=== PATIENT | male | born 2000 | race Caucasian/White ===

== ENCOUNTER 2024-11-16 01:03 | Day surgery (SDC) | payer OTHER, SELFPAY ==
[2024-11-03 13:08] VITALS: BMI 29.1
--- NOTE | 2024-11-03 13:17 | SUR.PREOP ---
Report to the Outpatient Waiting Room, entrance under the green pavilion located off [facility], at time 11:30 a.m. on date 11/16/2024. Planned Procedure Time: 1:30p.m.? Time changes happen often and if your time is changed the preop area will call you the afternoon before. - You and your visitor will be asked to self-screen and do not enter if you have any COVID symptoms. Please call surgeon if you need to reschedule. - A mask is optional within the hospital at this time. Patients may have clear liquids (water, carbonated beverages, clear teas, apple juice) until 3 hours prior to surgery with a maximum of 20 ounces. - No food from midnight until time of surgery and no smoking, or chewing tobacco (or any form of nicotine). No chewing gum, candy or mints. Take only the following medications with a SIP of water on the morning of surgery: N/A DO NOT STOP ANY OF YOUR OTHER PRESCRIPTION MEDICATIONS PRIOR TO SURGERY EXCEPT THE FOLLOWING Hold all vitamins and supplements for 3 days per anesthesiologist. Medications to discontinue per physician N/A Date to take last dose N/A Please no make-up, nail arabic, hairspray, perfume, deodorant, or body powder the day of surgery.? No jewelry (including any body piercings) or valuables the day of surgery, leave them at home.? Please take a shower or bath the night before, or the morning of, surgery with an antibacterial soap.? Wear comfortable, loose fitting clothing.? Children are encouraged to wear pajamas. - Jewelry must be removed prior to entering the operating room.? Rings and piercings that are not removed may be cut off. - The hospital will not accept responsibility for valuables.? - Please leave all valuables, including medications, at home the day of surgery. If you are going home after surgery, a licensed delivery driver assistant must drive you home.? - NO public transportation without another adult if you receive anesthesia. - We recommend that an adult stay with you for 24 hours following discharge. - We also recommend that you do not drive, make important decision, drink alcoholic beverages, or take any drugs that were not prescribed by your health care provider for at least 24 hours after your discharge time. For Pediatric surgeries, we recommend two adults accompany the child home. Follow any additional instructions given to you from your surgeon. Telephone instructions given to Muriel Bose and asked if any additional questions and then verbalized understanding. Patient advised to call surgeon office or pre surgery nurse liaison [phone] if any additional questions.
[2024-11-16] VITALS (7 sets, daily range): BP systolic 102–130; BP diastolic 47–71; PULSE 64–86; RESP 14–18; TEMP 36.1–36.8; O2SAT 100
--- OUTSIDE RECORDS SUMMARY | 2024-11-16 01:07 | XMS_ITS | Encounter Summary ---
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
--- OUTSIDE RECORDS SUMMARY | 2024-11-16 01:07 | XMS_ITS | Clinical Summary ---
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 Gender Identity Not on file Sexual Orientation Not on file Last Filed Vital Signs Vital Sign Reading Time Taken Comments Blood Pressure 118/91 10/22/2020 11:28 AM CDT Pulse 64 10/22/2020 11:28 AM CDT Temperature 36.3 C (97.4 F) 10/22/2020 11:28 AM CDT Respiratory Rate 16 10/22/2020 11:28 AM CDT Oxygen Saturation 99% 10/22/2020 11:28 AM CDT Inhaled Oxygen Concentration - - Weight 77.1 kg (170 lb) 10/22/2020 11:28 AM CDT Height 162.6 cm (5' 4 ) 10/22/2020 11:28 AM CDT Body Mass Index 29.18 10/22/2020 11:28 AM CDT Plan of Treatment Health Maintenance Due Date Last Done Comments Annual Physical 2005 DTaP, Tdap and Td Vaccines (6 - Tdap) 2013 12/16/2007, 06/29/2003, 2002, Additional history exists HPV Vaccines (2 - Male 2-dose series) 08/01/2017 01/29/2017 Meningococcal B Vaccine (1 of 2 - Standard) 2018 Hepatitis C 2020 Hepatitis B Vaccines (1 of 3 - 19+ 3-dose series) 2021 COVID-19 Vaccine (1 - 2023-25 season) 2024 Meningococcal Vaccine Completed 01/26/2019 Pneumococcal Vaccine: Pediatrics (0 to 5 Years) and At-Risk Patients (6 to 49 Years) Aged Out No longer eligible based on patient's age to complete this topic RSV Immunizations Under 20 Months Aged Out No longer eligible based on patient's age to complete this topic Insurance [facility] Care Teams Professor Of Industrial Technology Relationship Specialty Start Date End Date Dharmesh Danielle MD [address] [place] [phone] PCP - General FAMILY PRACTICE 10/22/20
[2024-11-16] MEDS: LACTATED RINGERS 1,000 ML 30 ML IV CONT ×2 (12:40→15:01)
--- NOTE | 2024-11-16 12:54 | WPDHPUPDATE1 ---
History and Physical Update Update Date/Time: 11/16/24 12:54 History and Physical has been reviewed, including an updated exam of the patient. There are NO changes in the patient's condition. Risks, benefits, and alternatives have been discussed and questions answered. Patient agrees to proceed with procedure.
--- NOTE | 2024-11-16 12:55 | PM.IMHP ---
H&P: HPI History of Present Illness Date/Time: 11/16/24 12:55 Chief Complaint: Pilonidal cyst Narrative: This is a 24-year-old man who presents for excision of complicated pilonidal cyst. He was seen about 6 months ago but wanted to delay surgery until the end of school. He denies any significant changes since last seen in the office. Review of Systems Review of Systems: All systems reviewed & are unremarkable except as noted in HPI and below Constitutional: Constitutional: Denies chills, Denies fever(s), Denies headache(s) and Denies weight loss Eyes: Eyes: Denies change in vision ENT: Denies dizziness, Denies headache(s), Denies neck mass and Denies throat swelling Cardiovascular: Cardiovascular: Denies chest pain, Denies lightheadedness and Denies dyspnea Respiratory: Respiratory: Denies cough, Denies dyspnea and Denies wheezing Gastrointestinal: Gastrointestinal: Denies abdominal pain, Denies change in bowel habits, Denies nausea and Denies vomiting Genitourinary: Genitourinary: Denies hematuria and Denies dysuria Musculoskeletal: Musculoskeletal: Reports as per HPI Integumentary/Breasts: Skin/Breast: Reports as per HPI Neurologic: Denies dizziness and Denies headache(s) Allergic/Immunologic: Allergic/Immunologic: Denies throat swelling and Denies wheezing PMFSH Past Medical History Medical History No pertinent past medical history Surgical History Surgical History No history of previous surgery Family History Family History Father TIA (transient ischemic attack) Cerebrovascular accident Hypertension High cholesterol Mother High cholesterol Social History Social History (Updated 05/15/24 @ 10:44 by Bel Morrissey CMA) Smoking status: Never smoker Alcohol intake: current Drinks per week: 2 Substance use: never Substance use type: does not use Do You Feel Safe in your Home?: Yes Lack of Transportation: No Lack of Food: Never True Current Housing: I Have Housing Concerned About Future Housing: No Difficulty Paying Gas/Electric Bills: No Difficulty Paying for Meds: No Currently Unemployed: No Education: Bachelor's Degree Difficulty w/ Childcare or Family Care: No Living arrangements: with family Occupation/Education: student Meds Home Medications and Allergies Home Medications ?Medication ?Instructions ?Recorded ?Confirmed ?Type finasteride 5 mg tablet 2.5 mg PO DAILY 05/15/24 11/03/24 History mupirocin 2 % topical ointment 1 applic topical DAILY #22 grams 05/15/24 11/03/24 Rx Allergies Allergy/AdvReac Type Severity Reaction Status Date / Time No Known Allergies Allergy Verified 11/03/24 13:07 Exam Const: General: no acute distress and alert Orientation/consciousness: patient oriented x3 HENMT: Head: normocephalic and atraumatic Ears: hearing grossly normal bilaterally Face/Nose/Sinus: Normal nares present Mouth: Yes Normal oral and palatal mucosa present Eyes: Periorbital: periorbital findings normal Sclera: sclerae normal EOM: EOMs intact bilaterally Neck: Neck: normal visual inspection, no lymphadenopathy and trachea midline Chest: Chest palpation & inspection: normal inspection of the chest Resp: Effort & Inspection: normal respiratory effort Auscultation: clear to auscultation bilaterally Cardio: Jugular venous distension: no JVD Rate: regular rate Rhythm: regular rhythm Heart sounds: S1 normal heart sound present and S2 normal heart sound present Peripheral pulses: Peripheral pulses 2+ throughout GI: Inspection: normal to inspection GI Palp: Yes Soft to palpation, No Tenderness to palpation present (GI), No Guarding due to palpation present (GI) and No Rebound tenderness present Percussion: Yes normal to percussion Auscultation: normal bowel sounds : General: Yes no CVA tenderness Back/Spine/Pelvis: Back: no CVA tenderness Skin: Other: Pilonidal cyst just to the right of midline within the intergluteal cleft Neuro: General: patient oriented x3, no focal motor deficits and CN's II-XI intact bilaterally Cognition (Neuro): normal cognition Speech: normal speech Motor exam (neuro): 5/5 motor strength present throughout Extrem: General: capillary refill normal and no clubbing, cyanosis or edema Assessment and Plan Assessment and plan (1) Pilonidal cyst: Code(s): L05.91 - Pilonidal cyst without abscess Status: Acute Assessment and Plan: I have recommended Excision of complicated pilonidal cyst. I have discussed the procedure, risks, benefits, and alternatives with the patient. All questions answered. No changes since last seen in office.
--- NOTE | 2024-11-16 13:12 | P.PNAN_ITS ---
Anes - Initial Pre Proc Eval Procedure: Operation Date: 11/16/24 13:30 Proposed Procedures p Excision Complicated Pilonidal Cyst - Vicente Pool DO Date/Time: 11/16/24 13:12 Surgeon: Vicente Pool DO Pre Op Diagnosis: Piloindal Cyst Patient Data Age: 24 Gender: M Height: 1.63 m Weight: 77.3 kg Last Vital Signs Temp 98.3 F 11/16/24 12:02 Pulse 66 11/16/24 12:02 Resp 16 11/16/24 12:02 BP 121/47 L 11/16/24 12:02 Pulse Ox 100 11/16/24 12:02 O2 Del Method Room Air 11/16/24 12:02 Allergies Allergy/AdvReac Type Severity Reaction Status Date / Time No Known Allergies Allergy Verified 11/03/24 13:07 Home Medications ?Medication ?Instructions ?Recorded ?Confirmed ?Type finasteride 5 mg tablet 2.5 mg PO DAILY 05/15/24 11/03/24 History mupirocin 2 % topical ointment 1 applic topical DAILY #22 grams 05/15/24 11/03/24 Rx Patient hx anesthesia problems: none Family hx anesthesia problems: none Results Review: All pre-operative results and documents have been reviewed as part of the pre- operative evaluation. [facility] Past Medical History Medical History No pertinent past medical history Surgical History Surgical History No history of previous surgery Family History Family History Father TIA (transient ischemic attack) Cerebrovascular accident Hypertension High cholesterol Mother High cholesterol Social History Social History Smoking status: Never smoker Alcohol intake: current Drinks per week: 2 Substance use: never Substance use type: does not use Do You Feel Safe in your Home?: Yes Lack of Transportation: No Lack of Food: Never True Current Housing: I Have Housing Concerned About Future Housing: No Difficulty Paying Gas/Electric Bills: No Difficulty Paying for Meds: No Currently Unemployed: No Education: Bachelor's Degree Difficulty w/ Childcare or Family Care: No Living arrangements: with family Occupation/Education: student [employer] Final PreProcedure Day of Procedure 11/16/24 13:12 Patient weight: normal Lungs: normal air movement Airway: Mallampati scale class II Neurological: alert and oriented Last oral intake: >/= 8 hours ASA classification: I Emergent: no Anesthetic plan: proceed Anesthesia type and monitoring: general GIVS and standard monitoring Results Review: All pre-operative results and documents have been reviewed as part of the pre- operative evaluation. Healthy 24 yo male. Informed Consent: The patient's anesthetic plan and its attendant risks and benefits were discussed with the patient/family/POA. Questions were solicited and answers provided to the satisfaction of the patient/family/POA.
[2024-11-16] MEDS: ceFAZolin 2 GM/D5W 50 ML 2 GM/50 ML BAG IVPB (13:25)
[2024-11-16] MEDS: BUPIVACAINE/EPINEPHRINE 0.5% 50 ML VIAL 20 ML INFILTRATE (13:57)
[2024-11-16] MEDS: KETOROLAC 30 MG/ML VIAL (*BKC) IV PUSH (14:20)
--- NOTE | 2024-11-16 14:38 | P.OP_ITS ---
Procedure Note - Detailed Date of Procedure 11/16/24 Pre-op Diagnosis Piloindal Cyst Post-op Diagnosis Same Procedure Performed Excision of complicated pilonidal cyst Surgeon Vicente Pool, DO Anesthesia General and Local ( 0.5% bupivacaine with epinephrine) Indications This is a 24-year-old man who presented with recurrent drainage from pilonidal cyst. He has a chronic wound on the upper midline intergluteal cleft has some occasional bloody drainage. He had been trying local wound care without much r elief. Discussions were made with the patient about treatment options and decision was made to proceed with excision of complicated pilonidal cyst. Findings Excision of complicated pilonidal cyst was performed. Patient had multiple small sinus tracts the midline intergluteal cleft. Several of the sinus tracts were tracking cephalad towards an area on the superior cleft that had a chronic wound and mild swelling. The total distance between the tracts and the upper wound was about 10 cm. An elliptical incision was made to encompass the entire area. The pilonidal cyst was completely excised and sent to the lab for pathology. The wound was then closed in layers using 0 Vicryl interrupted deep sutures followed by Prolene vertical mattress skin sutures. Description of Procedure Procedure as well as risks, benefits, and alternatives were discussed with the patient. Written consent was obtained and placed in chart prior to procedure. Patient was brought back to surgical suite. He was placed supine on operating table. Time-out was done to confirm patient and procedure. He was then i ntubated by the Anesthesia Department. He was then repositioned to prone esha- knife position on the operating table. His sacral region was prepped and draped in sterile fashion using Betadine prep. 0.5% bupivacaine with epinephrine was infiltrated locally around the pilonidal cyst. Lacrimal probes were used to identify the sinus tracts and probed for the directions that they were tracking. An elliptical incision was then made using a 10 blade scalpel to encompass the entire area. Electrocautery was used for hemostasis and for dissection down deep to the cyst cavity. Careful dissection was made around the entire cyst to excise it completely intact. The cyst was completely removed and sent to the lab for pathology. The wound bed was then inspected. Hemostasis was achieved with electrocautery. A 0.5% bupivacaine with epinephrine was infiltrated deep in the cavity. The wound bed was then irrigated with sterile saline. No other abnormalities were noted. The deep tissue was then reapproximated using 0 Vicryl simple interrupted sutures. The skin edges were then reapproximated using 1 and 2-0 Prolene vertical mattress interrupted sutures placed approximately 1 cm apart. Fluff gauze, ABD pad, and Medipore tape were then applied. The patient was then awakened from anesthesia, extubated, and transferred to recovery. Estimated Blood Loss 10 Packing No Pathology Yes ( pilonidal cyst) Complications No immediate complications Condition Stable Disposition Same day [facility] Billing Surgery - Charge Forward: Surgery Billing
== END 2024-11-16 16:35 | disposition home or self-care (01) ==
PROVIDERS: PCP Family Medicine; Visit Provider Surgery
PROC: (CPT 11772; principal; 2024-11-16 13:30)
DX: L05.91 Pilonidal cyst without abscess (principal); Z82.49 Family history of ischemic heart disease and other diseases of the circulatory system
CPT/HCPCS: 11772; 88305; J0690; J1100; J1171; J1596; J1885; J2250; J2704; J2710; J7120